=== PATIENT | female | born 1990 | race Caucasian/White ===

== ENCOUNTER 2021-03-10 07:27 | Day surgery (SDC) | payer MEDICAID, SELFPAY ==
[~2021-03-10] VITALS: Ht 162.6 cm; Wt 83.0 kg
[2021-03-10 08:47] LABS: HCG,QUAL RESULT NEGATIVE (NEGATIVE)
[2021-03-10] MEDS ORDERED: SIMETHICONE 40 MG/0.6 ML ML ONE (09:17)
[2021-03-10] MEDS ORDERED: MEPERIDINE 100 MG INJ. 100 MG/ML VIAL ONE (09:18)
[2021-03-10] MEDS ORDERED: MIDAZOLAM HCL 5 MG/5 ML VIAL ONE ×2 (09:18→09:30)
[2021-03-10] MEDS ORDERED: DIPHENHYDRAMINE INJ 50 MG/ML VIAL ONE (09:30)
[2021-03-10 13:51] VITALS: BP_SYST 113
== END 2021-03-10 10:24 | disposition home or self-care (01) ==
LOC: SDS 07:27 → SMU 07:28 → SDS 10:24
PROVIDERS: ATTEND Internal Medicine
DX: K59.00 Constipation, unspecified (principal); R10.13 Epigastric pain; R10.12 Left upper quadrant pain; K56.2 Volvulus; D68.0 Von Willebrand disease; Z20.822 Contact with and (suspected) exposure to COVID-19
CPT/HCPCS: 36415; 45378; 84703; 87426; 99152; G0378; J1200; J2175; J2250